=== PATIENT | female | born 1950 | race Caucasian/White ===

== ENCOUNTER 2018-06-28 19:57 | Emergency (ER) | payer MEDICARE, OTHER ==
--- NOTE | 2018-06-28 21:03 | ED ---
Neurological HPI - HPI Summary HPI Summary: This patient is a 67 year old F presenting to [facility] accompanied by her so with a chief complaint of seizure-like activity since just [employer]. Patient reports nausea, vomiting, weakness, shaking, throat tightness, and confusion. Patient denies DE LA TORRE or incontinence. The patient was alone in a hot tub when her son called out her name, which she did not respond to. When he found her, she was asleep and partially underwater in the hot tub. When aroused, she was weak and stated she was napping, then her son asked her to come inside and drink some water. While in the house, she had an episode where her eyes rolled back in her head, her jaw clenched up, she made weird sounds with her mouth, and had some frothing. The rest of her body was limp while this occurred, and it lasted about 30 seconds. A few minutes later she had another episode, without jaw clenching, where she had an episode of emesis. The patient states that she only remembers getting into the hot tub, feeling weak, walking inside, and feeling shaky. Her son states that she is under a lot of stress because of a separation with her . RX none. Vitals in the room: HR 70 bpm, BP 133/84. - History of Current Complaint Chief Complaint: EDNeurologicalDeficit Stated Complaint: SEIZURE Time Seen by Provider: 06/28/18 20:48 Hx Obtained From: Patient, Family/Garage Manager - son Onset/Duration: Sudden Onset, Started minutes ago Timing: Intermittent Episodes Lasting: - 30 seconds Current Severity: None Number of Seizures: 2 Pain Intensity: 0 Pain Scale Used: 0-10 Numeric Character: Weak, Impaired Speech, Confusion, Visual Changes - eyes rolled back Associated Signs and Symptoms: Positive: Visual Changes, Confusion, Weakness, Seizure, Impaired Speech, Nausea/Vomiting, Emotional Distress - separation. Negative: Headache, Incontinent Bladder/Bowel - Allergy/Home Medications Allergies/Adverse Reactions: Allergies Allergy/AdvReac Type Severity Reaction Status Date / Time MS Bee Venom [Bee Venom] Allergy Swelling Verified 06/28/18 20:10 MS Codeine [Codeine] Allergy Vomiting Verified 06/28/18 20:10 MS Venlafaxine [From Effexor] Allergy Bleeding Verified 06/28/18 20:10 Home Medications: Home Medications Prochlorperazine SUPP* [Compazine Supp*] 25 mg IN Q12H PRN 06/28/18 [History Confirmed 06/28/18] PMH/Surg Hx/FS Hx/Imm Hx Endocrine/Hematology History: Denies: Hx Diabetes Cardiovascular History: Denies: Hx Hypertension Respiratory History: Denies: Hx Asthma, Hx Chronic Obstructive Pulmonary Disease (COPD) - Cancer History Hx Chemotherapy: No Hx Radiation Therapy: No - Surgical History Surgery Procedure, Year, and Place: tonsils, Right knee - Immunization History Date of Tetanus Vaccine: UTD Date of Influenza Vaccine: NO Infectious Disease History: No Infectious Disease History: Reports: Traveled Outside the [place] in Last 30 Days - Family History Known Family History: Positive: Seizure Disorder - Social History Alcohol Use: Weekly Alcohol Amount: 5 out of 7 days a week Substance Use Type: Reports: Other Substance Use Comment - Amount & Last Used: CBD oil for lyme Hx Tobacco Use: No Smoking Status (MU): Former Smoker Review of Systems Positive: Other - eyes rolled back Positive: Other - jaw clench, throat tightness, frothing Positive: Vomiting, Nausea Negative: incontinence Neurological: Other - confusion Positive: Weakness, Slurred Speech. Negative: Headache All Other Systems Reviewed And Are Negative: Yes Physical Exam - Summary Physical Exam Summary: VITAL SIGNS: Reviewed. GENERAL: Patient is a well-developed and nourished female who is lying comfortable in the stretcher. Patient is not in any acute respiratory distress. HEAD AND FACE: No signs of trauma. No ecchymosis, hematomas or skull depressions. No sinus tenderness. EYES: PERRLA, EOMI x 2, No injected conjunctiva, no nystagmus. EARS: Hearing grossly intact. Ear canals and tympanic membranes are within normal limits. MOUTH: Oropharynx within normal limits. No tongue biting. NECK: Supple, trachea is midline, no adenopathy, no JVD, no carotid bruit, no c- spine tenderness, neck with full ROM. CHEST: Symmetric, no tenderness at palpation LUNGS: Clear to auscultation bilaterally. No wheezing or crackles. CVS: Regular rate and rhythm, S1 and S2 present, no murmurs or gallops appreciated. ABDOMEN: Soft, non-tender. No signs of distention. No rebound no guarding, and no masses palpated. Bowel sounds are normal. EXTREMITIES: FROM in all major joints, no edema, no cyanosis or clubbing. NEURO: Alert and oriented x 3. No acute neurological deficits. Speech is normal and follows commands. SKIN: Dry and warm GCS: 15 Triage Information Reviewed: Yes Vital Signs On Initial Exam: Initial Vitals Temp Pulse Resp BP Pulse Ox 98.3 F 67 16 132/80 99 06/28/18 20:06 06/28/18 20:06 06/28/18 20:06 06/28/18 20:06 06/28/18 20:06 Vital Signs Reviewed: Yes Diagnostics - Vital Signs Vital Signs Temp Pulse Resp BP Pulse Ox 06/28/18 20:48 66 20 133/84 100 06/28/18 20:47 23 06/28/18 20:06 98.3 F 67 16 132/80 99 - Laboratory Result Diagrams: 06/28/18 21:18 06/28/18 21:18 Lab Statement: Any lab studies that have been ordered have been reviewed, and results considered in the medical decision making process. - CT Brain CT Interpretation Completed By: Radiologist Summary of CT Findings: No acute intracranial abnormality. ED physician has reviewed this report. - EKG 21:42 Cardiac Rate: NL - 66 bpm EKG Rhythm: Sinus Rhythm Summary of EKG Findings: Short IN interval Course/Dx - Course Course Of Treatment: This patient is a 67 year old F presenting to [facility] accompanied by her so with a chief complaint of seizure-like activity since just LE[employer]. Patient reports nausea, vomiting, weakness, shaking, throat tightness , and confusion. Patient denies DE LA TORRE or incontinence. The patient was alone in a hot tub when her son called out her name, which she did not respond to. When he found her, she was asleep and partially underwater in the hot tub. When aroused , she was weak and stated she was napping, then her son asked her to come inside and drink some water. While in the house, she had an episode where her eyes rolled back in her head, her jaw clenched up, she made weird sounds with her mouth, and had some frothing. The rest of her body was limp while this occurred, and it lasted about 30 seconds. A few minutes later she had another episode, without jaw clenching, where she had an episode of emesis. An EKG reveals NSR 66 bpm, short IN interval. CT Brain reveals, per radiologist, no acute intracranial abnormality. ED physician has reviewed this radiology report. Test results with no significant abnormalities. In the ED course the patient was given Levetircetam. The patient has been stable in the ED, with no seizure activity. However, per sons report, I think she did have a seizure in her home. In the ED, the patient refused to take Keppra and does not want to take it at home. Her son requests a prescription just in case she changes her mind. She should follow up with a neurologist in outpatient care. Patient will be discharged with prescription for Keppra and follow up from Dr. Fabian, neurologist. The patient is agreeable with this plan. - Diagnoses Provider Diagnoses: Seizure Discharge - Sign-Out/Discharge Documenting (check all that apply): Patient Departure - discharge Patient Received Moderate/Deep Sedation with Procedure: No - Discharge Plan Condition: Stable Disposition: HOME Prescriptions: levETIRAcetam [Keppra 250] 250 mg PO BID #60 tab Patient Education Materials: Recurrent Seizures in Adults (ED) Referrals: Spike Fabian MD [Medical Doctor] - 2 Days Additional Instructions: Follow up with your Dr. Fabian, neurologist, in 1-[address] or exercise and take seizure precautions. RETURN TO THE EMERGENCY DEPARTMENT FOR CHANGING OR WORSENING SYMPTOMS. - Billing Disposition and Condition Condition: STABLE Disposition: Home - Attestation Statements Document Initiated by Marge: Yes Documenting Scribe: Blas Zheng Provider For Whom Marge is Documenting (Include Credential): Boston Diaz MD Scribe Attestation: IBlas, scribed for Boston Diaz MD on 06/29/18 at 0337. Scribe Documentation Reviewed: Yes Provider Attestation: The documentation as recorded by the Blas leonard accurately reflects the service I personally performed and the decisions made by me, Boston Diaz MD Status of Scribe Document: Viewed
[2018-06-28] MEDS ORDERED: levETIRAcetam IV* 500 MG in NS 0.9% 100 ML* 100 ML IVPB ONE (21:04)
[2018-06-28 21:28] LABS: ABS Basophils 0 10^3/ul (0-0.2); ABS Eosinophils 0.1 10^3/ul (0-0.6); ABS Lymphocytes 1.2 10^3/ul (1.0-4.8); ABS Monocytes 0.6 10^3/ul (0-0.8); ABS Neutrophils 5.2 10^3/ul (1.5-7.7); ABS Nucleated RBC 0 10^3/ul; Eosinophil % 1.1 %; Hematocrit 38 % (35-47); Hemoglobin 12.7 g/dl (12.0-16.0); Lymphocyte % 16.3 %; Mean Corpuscular HGB Conc 33 g/dl (31-36); Mean Corpuscular Hemoglobin 32 pg (27-31); Mean Corpuscular Volume 97 fL (80-97); Mean Platelet Volume 9.1 fL (7.4-10.4); Nucleated Red Blood Cells % 0; Platelet Count 257 10^3/ul (150-450); Red Blood Count 3.93 10^6/ul (4.00-5.40); Red Cell Distribution Width 14 % (10.5-15); White Blood Count 7.1 10^3/ul (3.5-10.8)
[2018-06-28 21:36] LABS: Activated Partial Thrombo Time 26.9 seconds (26.0-36.3); INR 0.8 (0.77-1.02)
[2018-06-28 21:44] LABS: Albumin 4.4 g/dL (3.2-5.2); Albumin/Globulin Ratio 1.4 (1-3); BUN/Creatinine Ratio 20.9 (8-20); Calcium 9.8 mg/dL (8.6-10.3); EGFR African American 75.1 (>60); Globulin 3.2 g/dL (2-4); Magnesium 2.1 mg/dL (1.9-2.7); Potassium 4.2 mmol/L (3.5-5.0); Total Bilirubin 0.3 mg/dL (0.2-1.0); Total Protein 7.6 g/dL (6.4-8.9)
[2018-06-28 22:32] VITALS: BP 117/77
== END 2018-06-28 22:47 | disposition home or self-care (01) ==
LOC: ED 19:57
DX: R56.9 Unspecified convulsions (principal); R53.1 Weakness; R41.0 Disorientation, unspecified; Z87.891 Personal history of nicotine dependence; R11.2 Nausea with vomiting, unspecified
CPT/HCPCS: 36415; 70450; 80053; 82550; 83605; 83735; 85025; 85610; 85730; 93005; 96374; 99283

== ENCOUNTER 2019-06-11 21:06 | Emergency (ER) | payer OTHER, MEDICARE ==
[2019-06-11 21:38] VITALS: BP 145/80
--- NOTE | 2019-06-11 21:38 | UC ---
UC General HPI - HPI Summary HPI Summary: 68-year-old woman comes in with chief complaint of chest tightness. About a 2 out of 10. It's been going on and off for several weeks. It was worse today. She has been short of breath and nauseous. On occasion it has radiated up into her left arm and into her left neck. Today she had some seizure like activity. She is seeing a neurologist for seizure-like activity. She reports taking 3 or 4 81 mg baby aspirin that were about 5 years ago prior to arrival. - History of Current Complaint Stated Complaint: CHEST TIGHTNESS Time Seen by Provider: 06/11/19 21:15 - Allergy/Home Medications Allergies/Adverse Reactions: Allergies Allergy/AdvReac Type Severity Reaction Status Date / Time bee venom protein (honey bee) Allergy Swelling Verified 06/11/19 21:39 codeine Allergy Nausea And Verified 06/11/19 21:39 Vomiting venlafaxine [From Effexor] Allergy Bleeding Verified 06/11/19 21:39 PMH/Surg Hx/FS Hx/Imm Hx Previously Healthy: Yes Neurological History: Seizures - Surgical History Surgical History: Yes Surgery Procedure, Year, and Place: tonsils, Right knee - Family History Known Family History: Positive: Seizure Disorder - Social History Alcohol Use: Weekly Alcohol Amount: 5 out of 7 days a week Substance Use Type: Other Substance Use Comment - Amount & Last Used: CBD oil for lyme Smoking Status (MU): Former Smoker Review of Systems All Other Systems Reviewed And Are Negative: Yes Constitutional: Positive: Other - SEE HPI Skin: Positive: Negative Eyes: Positive: Negative ENT: Positive: Negative Respiratory: Positive: Shortness Of Breath, Other - SEE HPI Cardiovascular: Positive: Chest Pain Gastrointestinal: Positive: Nausea Motor: Positive: Negative Neurovascular: Positive: Negative Musculoskeletal: Positive: Negative Neurological: Positive: Other - SEE HPI Psychological: Positive: Negative Is Patient Immunocompromised?: No Physical Exam Triage Information Reviewed: Yes Appearance: Well-Appearing, No Pain Distress, Well-Nourished Vital Signs Reviewed: Yes Eye Exam: Normal Eyes: Positive: Conjunctiva Clear Neck: Positive: Supple Respiratory: Positive: Lungs clear, Normal breath sounds, No respiratory distress Cardiovascular: Positive: RRR Musculoskeletal: Positive: Strength Intact, ROM Intact, No Edema - No calf tenderness Neurological: Positive: Alert, Muscle Tone Normal Psychological: Positive: Normal Response To Family, Age Appropriate Behavior Skin Exam: Normal Diagnostics - EKG Cardiac Rate: NL - AT 21:28 Cardiac Rhythm: Sinus: Normal - 74 BPM Ectopy: None Summary of EKG Findings: Short [place] interval of 103. RSR prime in V1 or V2 probable normal variant. There is some depressed T waves in V4 V5. Course/Dx - Course Course Of Treatment: I discussed the EKG with the patient. In comparing today's EKG from June EKG there is some sagging ST depressions in V4 and 5 on today's EKG that I did not see an June 2018 EKG. Also V1 and V2 ST segment did have a different morphology from the June 2018 EKGs. Patient reports her chest pain and 2 out of 10. I recommended further evaluation and care and emergency Department. I recommended going by ambulance with an IV. Patient declined that she wished to go by POV. Patient reports taking 3 or 4 aspirin prior to arrival therefore here in clinic we gave her 4 81 mg aspirin. - Diagnoses Provider Diagnosis: Chest pain Discharge ED - Sign-Out/Discharge Documenting (check all that apply): Patient Departure All imaging exams completed and their final reports reviewed: No Studies - Discharge Plan Condition: Stable Disposition: HOME-RECOMMEND TO ED Patient Education Materials: Chest Pain (ED) Referrals: Uzma Garrett MD [Primary Care Provider] - Additional Instructions: GO DIRECTLY TO THE EMERGENCY DEPARTMENT FOR FURTHER EVALUATION. - Billing Disposition and Condition Condition: STABLE Disposition: Home-Recommend to ED
[2019-06-11] MEDS ORDERED: Aspirin 81 mg CHEW TAB* 81 MG TAB.CHEW PO ONE (21:53)
== END 2019-06-11 22:05 | disposition home health service (06) ==
LOC: UCEAST 21:06
DX: R07.9 Chest pain, unspecified (principal); R11.0 Nausea; R94.31 Abnormal electrocardiogram [ECG] [EKG]; Z87.891 Personal history of nicotine dependence; Z88.5 Allergy status to narcotic agent; Z88.8 Allergy status to other drugs, medicaments and biological substances; Z91.030 Bee allergy status
CPT/HCPCS: 93005; 99213; A9270-GY; G0463

== ENCOUNTER 2019-06-11 23:06 | Emergency (ER) | payer MEDICARE, OTHER ==
--- NOTE | 2019-06-12 00:45 | ED ---
Complex/Multi-Sys Presentation - HPI Summary HPI Summary: Patient is a 68 y/o F presenting to the ED for a chief complaint of lightheadedness while making dinner in her kitchen on 06/11/19. Patient is present with her son. Patient states she had chest pressure and a foggy sensation when her lightheadedness began. Her son states the patient later had tremors, diaphoresis, pallor, and confusion. Patient denies LOC or slurred speech. She had a feeling she would have a seizure, so her son drove the patient to [facility] where she had an EKG and sent to [facility]. She currently complains of abdominal discomfort and chest discomfort. She notes having a general feeling of being unwell for the last few weeks. Approximately one year ago, patient reports having 4 seizures on one night witnessed by her son after never having had a seizure in the past. At that time, she was unresponsive during the seizures and had vomiting during the seizures. After the seizures, patient was seen at [facility] where she had a brain CT and followed up with a neurologist who ordered an EEG. Patient states her EEG showed "abnormal rapid firing." She was recommended to start a seizure medication at that time. PMHx is significant for anemia and Lyme disease for which she is currently receiving treatment. - History Of Current Complaint Chief Complaint: EDNeurologicalDeficit Time Seen by Provider: 06/12/19 00:25 Hx Obtained From: Patient, Family/Surface Hydrologist - Son Onset/Duration: Sudden Onset, Still Present Timing: Constant Severity Currently: Moderate Severity Initially: Moderate Associated Signs And Symptoms: Positive: Confusion, Diaphoresis - Allergies/Home Medications Allergies/Adverse Reactions: Allergies Allergy/AdvReac Type Severity Reaction Status Date / Time bee venom protein (honey bee) Allergy Swelling Verified 06/11/19 21:39 codeine Allergy Nausea And Verified 06/11/19 21:39 Vomiting venlafaxine [From Effexor] Allergy Bleeding Verified 06/11/19 21:39 PMH/Surg Hx/FS Hx/Imm Hx Previously Healthy: Yes Endocrine/Hematology History: Denies: Hx Diabetes Cardiovascular History: Denies: Hx Hypertension, Hx Pacemaker/ICD Respiratory History: Denies: Hx Asthma, Hx Chronic Obstructive Pulmonary Disease (COPD) History: Denies: Hx Renal Disease Sensory History: Denies: Hx Legally Blind, Hx Deafness, Hx Hearing Aid Opthamlomology History: Denies: Hx Legally Blind EENT History: Denies: Hx Deafness Neurological History: Reports: Hx Seizures Psychiatric History: Denies: Hx Panic Disorder - Cancer History Hx Chemotherapy: No Hx Radiation Therapy: No - Surgical History Surgical History: Yes Surgery Procedure, Year, and Place: tonsils, Right knee - Immunization History Date of Tetanus Vaccine: UTD Date of Influenza Vaccine: NO Infectious Disease History: No Infectious Disease History: Denies: Traveled Outside the [place] in Last 30 Days - Family History Known Family History: Positive: Seizure Disorder - Social History Occupation: Retired Lives: With Family Alcohol Use: Weekly Alcohol Amount: 5 out of 7 days a week Hx Substance Use: Yes Substance Use Type: Reports: Other Substance Use Comment - Amount & Last Used: CBD oil for lyme Hx Tobacco Use: Yes Smoking Status (MU): Former Smoker Review of Systems Positive: Skin Diaphoresis Positive: Other - Positive chest discomfort Positive: Other - Positive abdominal discomfort Positive: Other - Positive pallor Neurological: Other - Positive lightheadedness, tremors, and confusion Negative: Syncope - LOC, Slurred Speech All Other Systems Reviewed And Are Negative: Yes Physical Exam - Summary Physical Exam Summary: Appearance: Well-appearing, Well-nourished, lying in bed comfortably Skin: Warm, dry, no obvious rash Eyes: sclera anicteric, no conjunctival pallor ENT: mucous membranes moist, pharynx appears normal Neck: Supple, nontender Respiratory: Clear to auscultation, no signs of respiratory distress Cardiovascular: Normal S1, S2. No murmurs. Normal distal pulses in tibial and radial bilaterally. Abdomen: Soft, nontender, normal active bowel sounds present Musculoskeletal: Normal, Strength/ROM Intact Neurological: A&Ox3, awake and alert, mentation is normal, speech is fluent and appropriate Psychiatric: affect is normal, does not appear anxious or depressed Triage Information Reviewed: Yes Vital Signs On Initial Exam: Initial Vitals Temp Pulse Resp BP Pulse Ox 98.0 F 73 18 130/75 98 06/11/19 23:11 06/11/19 23:11 06/11/19 23:11 06/11/19 23:11 06/11/19 23:11 Vital Signs Reviewed: Yes Procedures - Sedation Patient Received Moderate/Deep Sedation with Procedure: No Diagnostics - Vital Signs Vital Signs Temp Pulse Resp BP Pulse Ox 06/11/19 23:11 98.0 F 73 18 130/75 98 - Laboratory Result Diagrams: 06/12/19 01:02 06/12/19 01:02 Lab Statement: Any lab studies that have been ordered have been reviewed, and results considered in the medical decision making process. - EKG 01:01 Cardiac Rate: NL - 74 BPM EKG Rhythm: Sinus Rhythm ST Segment: Normal Ectopy: None Summary of EKG Findings: EKG at 01:01 shows NSR at 74 BPM, P waves, QRS complex , and T waves are within normal limits, T waves and intervals are normal, no ischemic changes, no STEMI. This is a normal EKG. Reviewed and interpreted by Dr. Johnson. 23:17 Cardiac Rate: NL - 70 BPM EKG Rhythm: Sinus Rhythm ST Segment: Normal Ectopy: None Summary of EKG Findings: EKG at 23:17 shows NSR at 70 BPM, P waves, QRS complex , and T waves are within normal limits, T waves and intervals are normal, no ischemic changes, no STEMI. This is a normal EKG. Reviewed and interpreted by Dr. Johnson. Complex Multi-Symp Course/Dx Course Of Treatment: Patient is a 68 y/o F presenting to the ED for a chief complaint of lightheadedness while making dinner in her kitchen on 06/11/19. Patient is present with her son. Patient states she had chest pressure and a foggy sensation when her lightheadedness began. Her son states the patient later had tremors, diaphoresis, pallor, and confusion. Patient denies LOC or slurred speech. She had a feeling she would have a seizure, so her son drove the patient to [facility] where she had an EKG and sent to [facility]. She currently complains of abdominal discomfort and chest discomfort. She notes having a general feeling of being unwell for the last few weeks. Approximately one year ago, patient reports having 4 seizures on one night witnessed by her son after never having had a seizure in the past. At that time, she was unresponsive during the seizures and had vomiting during the seizures. After the seizures, patient was seen at [facility] where she had a brain CT and followed up with a neurologist who ordered an EEG. Patient states her EEG showed "abnormal rapid firing." She was recommended to start a seizure medication at that time. PMHx is significant for anemia and Lyme disease for which she is currently receiving treatment. On exam, unremarkable findings. EKG at 23:17 shows NSR at 70 BPM, P waves, QRS complex, and T waves are within normal limits , T waves and intervals are normal, no ischemic changes, no STEMI. This is a normal EKG. EKG at 01:01 shows NSR at 74 BPM, P waves, QRS complex, and T waves are within normal limits, T waves and intervals are normal, no ischemic changes, no STEMI. This is a normal EKG. Laboratory abnormal findings: RBC 3.47 , Hgb 11.7, Hct 33, MCH 34, BUN/Creatinine ratio 21.6, glucose 120. Patient will be discharged with a diagnosis of aura and chest pain. Follow up with PCP as needed. - Diagnoses Provider Diagnoses: Chest pain, Aura Discharge ED - Sign-Out/Discharge Documenting (check all that apply): Patient Departure - Discharge - Discharge Plan Condition: Good Disposition: HOME Patient Education Materials: Recurrent Seizures in Adults (ED) Referrals: Uzma Garrett MD [Primary Care Provider] - Additional Instructions: While it doesn't look like you suffered another seizure tonight, or any type of cardiac problem, you remain at risk for seizures in the future. I would recommend followup with a neurologist periodically. - Billing Disposition and Condition Condition: GOOD Disposition: Home - Attestation Statements Document Initiated by Marge: Yes Documenting Scribe: Ana Casarez Provider For Whom Marge is Documenting (Include Credential): Galindo Johnson MD Scribe Attestation: IAna scribed for Galindo Johnson MD on 06/12/19 at 0520. Scribe Documentation Reviewed: Yes Provider Attestation: The documentation as recorded by the Ana leonard accurately reflects the service I personally performed and the decisions made by me, Galindo Johnson MD Status of Scribe Document: Viewed
[2019-06-12 01:20] LABS: ABS Eosinophils 0.1 10^3/ul (0-0.6); ABS Lymphocytes 1.6 10^3/ul (1.0-4.8); ABS Monocytes 0.4 10^3/ul (0-0.8); Eosinophil % 2.6 %; Hematocrit 33 % (35-47); Hemoglobin 11.7 g/dL (12.0-16.0); Lymphocyte % 37.9 %; Mean Corpuscular HGB Conc 35 g/dL (31-36); Mean Corpuscular Hemoglobin 34 pg (27-31); Mean Corpuscular Volume 95 fL (80-97); Mean Platelet Volume 9.1 fL (7.4-10.4); Nucleated Red Blood Cells % 0.1; Platelet Count 241 10^3/uL (150-450); Red Blood Count 3.47 10^6 /uL (3.70-4.87); Red Cell Distribution Width 13 % (10-15); White Blood Count 4.2 10^3/uL (3.5-10.8)
[2019-06-12 01:37] LABS: Albumin 4.1 g/dL (3.2-5.2); Albumin/Globulin Ratio 1.4 (1-3); BUN/Creatinine Ratio 21.6 (8-20); Calcium 9.2 mg/dL (8.6-10.3); EGFR African American 77.8 (>60); EGFR Non-African American 64.3 (>60); Potassium 4.5 mmol/L (3.5-5.0); Total Bilirubin 0.3 mg/dL (0.2-1.0); Total Protein 7.1 g/dL (6.4-8.9)
[2019-06-12 01:38] LABS: Troponin I 0.01 ng/mL (<0.03)
[2019-06-12] MEDS ORDERED: Propofol* 100 ML IV ONE (04:31)
[2019-06-12 04:38] VITALS: BP 115/72
== END 2019-06-12 04:36 | disposition home or self-care (01) ==
LOC: ED 23:06
DX: R07.9 Chest pain, unspecified (principal); R56.9 Unspecified convulsions; D64.9 Anemia, unspecified; Z87.891 Personal history of nicotine dependence; Z88.5 Allergy status to narcotic agent; Z88.8 Allergy status to other drugs, medicaments and biological substances
CPT/HCPCS: 36415; 80053; 84484; 85025; 93005; 99283